=== PATIENT | male | born 1970 | race African-American/Black ===

== ENCOUNTER 2017-03-29 14:00 | Outpatient (CLI) | payer OTHER ==
--- NOTE | 2017-03-29 15:16 | RAD ---
LEFT KNEE TWO VIEWS: History: Left knee pain. FINDINGS/IMPRESSION: No fracture, dislocation, or bony destruction seen. Mild degenerative changes are present. POS: ANGELA
--- NOTE | 2017-03-29 17:30 | RAD ---
LUMBAR SPINE THREE VIEWS: 03/29/2017 COMPARISON: None. HISTORY: Back pain, disability evaluation. FINDINGS: There are 5 lumbar-type vertebral bodies demonstrating intact pedicles on frontal imaging. Vertebral body height and alignment appears normal within the lumbar spine. No displaced fracture. IMPRESSION: No acute osseous abnormality. POS: ANGELA
== END 2017-03-29 14:01 | disposition home or self-care (01) ==
LOC: NAV RAD 14:00
PROVIDERS: ATTEND Family Medicine
DX: M54.5 Low back pain (principal); M17.0 Bilateral primary osteoarthritis of knee
CPT/HCPCS: 72100